=== PATIENT | male | born 1990 | race American Indian/Alaskan Native ===

== ENCOUNTER 2021-03-06 11:05 | Emergency (ER) | payer OTHER ==
[2021-03-06] MEDS ORDERED: KETOROLAC 30 MG/1 ML INJ IM ONE (13:07)
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
[2021-03-06 14:13] VITALS: BP 112/65
== END 2021-03-06 14:13 | disposition home or self-care (01) ==
LOC: ED 11:05
DX: M54.2 Cervicalgia (principal); M79.18 Myalgia, other site; M25.512 Pain in left shoulder; V89.2XXA Person injured in unspecified motor-vehicle accident, traffic, initial encounter; Y93.89 Activity, other specified; Y92.89 Other specified places as the place of occurrence of the external cause; Y99.8 Other external cause status
CPT/HCPCS: 72040; 73030; 96372; 99283; J1885